=== PATIENT | male | born 1960 | race Caucasian/White ===

== ENCOUNTER 2016-11-02 05:10 | Day surgery (SDC) | payer MEDICAID ==
[2016-10-30 12:30] LABS: HEMATOCRIT 38.6 % (42.0-54.0); HEMOGLOBIN 12.9 g/dL (13.5-17.5); MCH 32.1 pg (26.0-34.0); MCHC 33.4 g/dL (31.0-37.0); MEAN PLATELET VOLUME 9.2 fL (7.4-10.4); RBC 4.02 10x6/uL (4.20-6.10); RDW 12.4 % (11.5-14.5); WBC 13.2 10x3/uL (4.8-10.8)
[~2016-11-02] VITALS: Ht 182.9 cm; Wt 109.8 kg
[~2016-11-02 05:10] MED LIST: ANUSOL-HC 2.5%30 GM TOPICAL; FLUTICASONE PRO16 GM NASAL; PAROXETINE HCL10 MG PO; PRINIVIL20 MG PO
[2016-11-02 06:19] VITALS: Ht 182.9 cm; Wt 109.8 kg
[2016-11-02] MEDS ORDERED: MIRALAX17 GM PO (09:04)
--- NOTE | 2016-11-02 09:36 | OP ---
PATIENT NAME: MILTON VILLALOBOS MEDICAL RECORD: [id number] :56 LOCATION:D.OPS ADMISSION DATE: SURGEON: JAKE MERINO MD DATE OF OPERATION: 11/02/2016 SURGEON: Jake Merino MD PREOPERATIVE DIAGNOSES: 1. Painless rectal bleeding. 2. Bleeding internal hemorrhoids. POSTOPERATIVE DIAGNOSES: 1. Painless rectal bleeding. 2. Bleeding internal hemorrhoids. PROCEDURE PERFORMED: 1. Colonoscopy with hot biopsy. 2. Internal hemorrhoid banding. ANESTHESIA: General. COMPLICATIONS: None. SPECIMENS: None. Case was contaminated. ESTIMATED BLOOD LOSS: Minimal. OPERATIVE COURSE: After consent was obtained, the patient was taken to the operating room and placed in the supine position on the operating table. Next, general anesthesia was given via nasoendotracheal intubation. Next, the patient was placed in stirrups. A timeout was taken to confirm the correct patient and procedure. A digital rectal exam was performed. The colonoscope was inserted into the rectum. Rectum was insufflated. The remaining portion of the colon was insufflated. The scope was advanced to the cecum. The appendiceal orifice and the ileocecal valve were identified. Approximately 15 minutes was spent on withdrawal of the scope, a single polyp was identified at 65 cm. A hot biopsy was obtained. There was one diverticulum noted on withdrawal of the exam. The scope has no other abnormalities identified. No signs of bleeding. Upon return to the rectum, the scope was retroflexed. Internal hemorrhoids were noted. No other masses were identified. At this time, the colon was desufflated and the colonoscope was removed. A 30 cc of local anesthetic were injected in a perineal block. The rectum was serially dilated using [place] retractors. The right posterior internal hemorrhoid column was banded as well as the left lateral internal hemorrhoid column. The rectum was packed with Gelfoam with [place]. At the end of the case, all needle and instruments counts were correct. No complications occurred. The patient was extubated and transferred to the PACU in stable condition. TRANSINT:[id number] Voice Confirmation ID: [id number] DOCUMENT ID: [id number] OPERATIVE REPORT [id number] MILTON VILLALOBOS JAKE MERINO MD at 0936 CC: [id number] DICTATION DATE: 11/02/16902 RUBBER BALL FINISHER: 11/02/16 0924 REG [facility] [address] [place], [facility]
--- NOTE | 2016-11-02 10:56 | NUR ---
1055--PT MILADYS, IV COLLIN TONG RN
--- NOTE | 2016-11-02 11:16 | NUR ---
1045--DISCHARGE INSTRUCTIONS GIVEN, PT VERBALIZES UNDERSTANDING. PT OFF UNIT VIA BAIRON. ALYCIA CHARLTON
== END 2016-11-02 11:00 | disposition home or self-care (01) ==
LOC: D.OPS 05:10 → D.PAN 07:30 → D.OPS 11:00
PROVIDERS: Anesthesiology
DX: K63.5 Polyp of colon (principal); K62.5 Hemorrhage of anus and rectum; K64.8 Other hemorrhoids; I10 Essential (primary) hypertension

== ENCOUNTER 2018-11-29 06:30 | Day surgery (SDC) | payer MEDICAID ==
[2018-11-28 11:03] LABS: HEMATOCRIT 39.9 % (42.0-54.0); HEMOGLOBIN 13.8 g/dL (13.5-17.5); MCH 32.1 pg (26.0-34.0); MCHC 34.6 g/dL (31.0-37.0); MCV 92.8 fL (80.0-100.0); MEAN PLATELET VOLUME 9.2 fL (7.4-10.4); RBC 4.3 10x6/uL (4.20-6.10); WBC 8.8 10x3/uL (4.8-10.8)
[~2018-11-29] VITALS: Ht 182.9 cm; Wt 110.2 kg
[~2018-11-29 06:30] MED LIST changes: +MIRALAX17 GM PO
[2018-11-29] MEDS ORDERED: ELAVIL25 MG PO (07:09)
[2018-11-29 07:15] VITALS: BP 138/87; Ht 182.9 cm; Wt 110.2 kg
--- NOTE | 2018-11-29 09:59 | NUR ---
0945 URINAL PROVIDED, VOIDED 250CC BLOODY URINE FL DIET SERVED. FAMILY AT BEDSIDE 0950 DR. OLIVERIO UGARTE. GIVES RESULTS.
--- NOTE | 2018-11-29 12:14 | OP ---
PATIENT NAME: MILTON VILLALOBOS MEDICAL RECORD: [id number] :56 LOCATION:.[facility] ADMISSION DATE: SURGEON: DEMI DURON MD DATE OF OPERATION: 11/29/2018 SURGEON: Demi Duron MD ANESTHESIA: TIVA by Dimitris Block CRNA. DIAGNOSES: Obstructive BPH, and bladder tumor. PROCEDURES: Cystoscopy with UroLift times 6 units attempted, 4 units held. Also bladder tumor biopsy. SPECIMENS: Bladder tumor. FINDINGS: Preoperative chest x-ray shows a sclerotic bony lesion on the T10 vertebral body. This was not seen on the chest x-ray of 2017. On cystoscopy, he has nonobstructive penile urethra. Bilateral lateral lobe hyperplasia of the prostate is seen. He has single ureteral orifices. A small tumor was seen on the medial edge of the right ureteral orifice. BLOOD LOSS: Minimal. CLINICAL HISTORY: This is a 58-year-old male referred for obstructive voiding symptoms, which have been present for 2 years. He tried Flomax briefly, but he found no benefit from it and he stopped using the Flomax. He has significant voiding symptoms including nocturia times 2, daytime urinary urgency without incontinence, hesitancy in starting to void and a weak stream. He has postvoid dribbling and he feels that he is empty when voiding. His PSA was 0.37 on 01/11/2018. His family history is negative for BPH and prostate cancer. He has a 30-gram benign feeling prostate on LINH. IPSS score is 18. Quality of life score is 6. I discussed further medications versus the UroLift device, and he wished to go with the UroLift implantation. The patient was an occasional tobacco smoker and he smokes marijuana. He is not allergic to any medication. He was given Ancef IV director of construction to the OR. DESCRIPTION OF PROCEDURE: The patient was given IV sedation. He was then placed into dorsal lithotomy position and prepped and draped. He continued to be very restless throughout the case with occasional clenching of both of his legs by adducting them. Nevertheless, we tried to avoid giving him general anesthetic. Cystoscopic findings are as outlined above. It was decided to proceed with the UroLift devices first and then switch the scope to the regular cystoscope and remove the tumor by using biopsy forceps. First, we placed the bladder neck UroLift devices. These were placed about 2 cm distal to the bladder neck. They were placed in the anterior lateral lobe. On the left side, the first unit held with no issues. On the right side, I used 2 units, both of which the clip fell off. Partly, this was because the patient was so restless at that time. Finally, the third unit did hold. We then put 2 more units in the anterior lateral lobe at the level of the verumontanum and these held without any issues. He had a nice urethral channel all the way through and the anterior urethra. We then switched to the regular cystoscope. The tumor was removed in one biopsy cup grasping forceps resection. It was small enough that one bite was sufficient. Note, there was no need to cauterize the lesion sites. Regardless it was right at the ureteral orifice, we did not wish to cauterize OPERATIVE REPORT [id number] MILTON VILLALOBOS this lesion site. The bladder was emptied through the scope and then the patient was awakened and brought back to the preoperative holding area. I will see him back next week to discuss what to do about the sclerotic lesion on the T10 vertebral body and to review the pathology results on the bladder biopsy with him. TRANSINT:[id number] Voice Confirmation ID: [id number] DOCUMENT ID: [id number] DEMI DURON MD at 1214 CC: [id number] DICTATION DATE: 11/29/18 0946 SECURITY OPERATIONS SPECIALIST: 11/29/18 1157 [facility] 11/29/18 [place] [id number] [place] [id number]
== END 2018-11-29 10:38 | disposition home or self-care (01) ==
LOC: D.OPS 06:30 → D.PAN 09:00 → D.OPS 09:30
PROVIDERS: Anesthesiology
DX: N40.1 Benign prostatic hyperplasia with lower urinary tract symptoms (principal); N13.8 Other obstructive and reflux uropathy; D49.4 Neoplasm of unspecified behavior of bladder
CPT/HCPCS: 52204; C9740

== ENCOUNTER → 2018-12-08 08:50 | Outpatient (CLI) | payer MEDICAID ==
[2018-11-29 07:15] VITALS: BMI 33.0
[~2018-12-08 08:50] MED LIST changes: +ELAVIL25 MG PO
== END | disposition home or self-care (01) ==
LOC: D.NM 08:50
DX: C79.51 Secondary malignant neoplasm of bone (principal)

== ENCOUNTER → 2018-12-30 18:46 | Outpatient (CLI) | payer MEDICAID ==
[2018-11-29 07:15] VITALS: BMI 33.0
== END | disposition home or self-care (01) ==
LOC: D.LABREF 18:46
PROVIDERS: ATTEND Urology
DX: R31.9 Hematuria, unspecified (principal)

== ENCOUNTER → 2019-02-23 08:30 | Day surgery (SDC) | payer MEDICAID ==
[2019-02-22 10:32] LABS: BASOPHILS 0.4 % (0-2); EOSINOPHILS 4.1 % (0-7); HEMATOCRIT 40.6 % (42.0-54.0); HEMOGLOBIN 14.1 g/dL (13.5-17.5); IMMATURE GRANULOCYTES 0.2 % (0-5); LYMPHOCYTES 32.1 % (15-50); MCH 32.1 pg (26.0-34.0); MCHC 34.7 g/dL (31.0-37.0); MCV 92.5 fL (80.0-100.0); MEAN PLATELET VOLUME 9.1 fL (7.4-10.4); MONOCYTES 8.1 % (2-11); NEUTROPHILS 55.1 % (40-80); PLATELET COUNT 243 10x3/uL (130-400); RBC 4.39 10x6/uL (4.20-6.10); RDW 13.2 % (11.5-14.5); WBC 9.5 10x3/uL (4.8-10.8)
[2019-02-22 10:43] LABS: APTT 28.1 SECONDS (22.8-39.4); INR 0.93 (0.85-1.17)
[~2019-02-23] VITALS: Ht 182.9 cm; Wt 112.9 kg
[~2019-02-23 08:30] MED LIST changes: +ALBUTEROL SULF8.5 GM INH
[2019-02-23 09:08] VITALS: BP 129/93; Ht 182.9 cm; Wt 112.9 kg
--- NOTE | 2019-02-23 15:18 | NUR ---
1030-UPDATED PATIENT DR DURON IS DELAYED X 2 HOURS OR SO. 1100-PATIENT STATES IS TIRED OF WAITING WANTS TO GO HOME AND RESCHEDULE. 1105- IV D/C. SURGERY AND DR. DURON'S OFFICE NOTIFIED. 1110-D/C HOME AMBULATORY.
== END | disposition home or self-care (01) ==
LOC: D.OPS 07:30 → D.PAN 08:10 → D.OPS 08:10 → D.PAN 10:00 → D.OPS 10:00 → D.PAN 11:20 → D.OPS 11:20
PROVIDERS: Anesthesiology; ATTEND Urology
DX: Z85.51 Personal history of malignant neoplasm of bladder (principal); Z53.29 Procedure and treatment not carried out because of patient's decision for other reasons; Z01.812 Encounter for preprocedural laboratory examination